=== PATIENT | female | born 1960 | race Two or more races ===

== ENCOUNTER → 2018-01-11 | Emergency (ER) | payer OTHER ==
[~2018-01-11] VITALS: Ht 152.4 cm; Wt 59.4 kg
[~2018-01-11] MED LIST: FOLIC ACID0.8 M1; IRON325 MG; TAGRISSO40 MG
== END | disposition designated cancer center or children's hospital (05) ==
LOC: ER 20:56
DX: G93.6 Cerebral edema (principal); C78.02 Secondary malignant neoplasm of left lung; C78.01 Secondary malignant neoplasm of right lung; C79.89 Secondary malignant neoplasm of other specified sites; Z92.21 Personal history of antineoplastic chemotherapy; Z85.89 Personal history of malignant neoplasm of other organs and systems; Z87.828 Personal history of other (healed) physical injury and trauma

== ENCOUNTER 2018-09-18 18:56 | Emergency (ER) | payer OTHER ==
[~2018-09-18] VITALS: Ht 154.9 cm; Wt 64.9 kg
[2018-09-18] MEDS ORDERED: KEPPRA500 MG (19:14)
[2018-09-18] MEDS ORDERED: DECADRON4 MG (19:14)
== END 2018-09-19 17:50 | disposition home or self-care (01) ==
LOC: ER 18:56
DX: R25.8 Other abnormal involuntary movements (principal); C79.31 Secondary malignant neoplasm of brain